=== PATIENT | female | born 1980 | race Caucasian/White ===

== ENCOUNTER 2016-07-26 21:45 | Emergency (ER) | payer OTHER ==
[2016-07-26 22:06] VITALS: BP 114/66; PULSE 79; TEMP 97.9; BMI 20.1
--- NOTE | 2016-07-26 22:18 | PDOC ---
[id number] 100 07/26/16 22:03 07/26/16 22:03 07/26/16 22:03 07/26/16 22:03 07/26/16 22:03 ED Treatment Course - LABORATORY CBC & Chemistry Diagram: 07/26/16 23:16 07/26/16 23:16 Medical Decision Making - Medical Decision Making 07/26/16 22:17 agree with care from ORGAN TUNER Stephon *DC/Admit/Observation/Transfer Diagnosis at time of Disposition: Non-viable , Back pain - Discharge Dispostion Disposition: HOME Condition at time of disposition: Stable - Referrals Referrals: Manjeet Domingo MD [Primary Care Provider] - - Patient Instructions Printed Discharge Instructions: Dealing With Miscarriage, DI for Miscarriage Additional Instructions: FOLLOW UP WITH YOUR EXECUTIVE ADMINISTRATIVE ASSISTANT SPECIALIST. CALL TO SCHEDULE YOUR APPOINTMENT. RETURN IF ANY CONCERNS FOR FURTHER EVALUATION. Print Language: SLOVAK
[2016-07-26 23:27] LABS: URINE APPEARANCE CLEAR; URINE BILIRUBIN NEGATIVE (NEGATIVE); URINE BLOOD NEGATIVE (NEGATIVE); URINE COLOR LT. YELLOW; URINE GLUCOSE (UA) NEGATIVE (NEGATIVE); URINE KETONE NEGATIVE (NEGATIVE); URINE LEUK ESTERASE NEGATIVE (NEGATIVE); URINE NITRITE NEGATIVE (NEGATIVE); URINE PROTEIN NEGATIVE (NEGATIVE); URINE UROBILINOGEN 0.2 E.U/dl E.U./dl (0.2-1.0)
[2016-07-26 23:29] LABS: MCH 28.4 pg (25.7-33.7); MCHC 31.5 g/dl (32.0-36.0); MEAN CELL VOLUME 90.1 fl (80-96); MEAN PLT VOLUME 7.7 fl (7.5-11.1); PLATELET COUNT 289 K/MM3 (134-434); RDW 14.6 % (11.6-15.6); WHITE BLOOD COUNT 6.1 K/mm3 (4.0-10.0)
--- NOTE | 2016-07-26 23:38 | PDOC ---
History of Present Illness - General Chief Complaint: Pain Stated Complaint: PAIN Time Seen by Provider: 07/26/16 22:10 History Source: Patient Exam Limitations: No Limitations - History of Present Illness Initial Comments: 07/26/16 22:33 36yo Female patient presents to ED c/o back pain, bilateral leg pain. Patient reports Jul 04 she was seen by her BELL SPINNER SOUSAPHONES for confirmation of . Patient reports blood work, urine and sonogram confirmed patient was 6 weeks and 3 days . Patient went to her follow up appointment Jul 26 and was told there is no heart beat via sonogram per patient. Patient is requesting a second opinion today and would like another sonogram done. She denies vaginal bleeding, rectal bleeding, fever, CP, Abd pain, n/v/d, diff breathing, or any other complaints at this time. Timing/Duration: 24 hours Severity: mild Modifying Factors: worse with: cold therapy, eating, immobilization, medication , movement, rest, other Associated Symptoms: denies: denies symptoms, chest pain, cough, diaphoresis, fever/chills, headaches, loss of appetite, malaise, nausea/vomiting, rash, seizure, shortness of breath, syncope, weakness, other Aspirin Received prior to arrival: No: no aspirin today, unknown, 81 mg x 1, 81 mg x 2, 81 mg x 3, 81 mg x 4, 325 mg x 1, provided at home, provided by EMS, provided by ED [facility] Contraindications(Core Measure): No: Allergy, Other, Active Blding w/i 24 hrs., Plavix, Receiving Warfarin Beta Tonny Contraindications(Core Measure): No: Not Prescribed, Allergy, Bradycardia (HR <60bpm), Advanced Heart Block, Pacemaker, Other Past History - Travel Traveled outside of the country in the last 30 days: No Close contact w/someone who was outside of country & ill: No - Past Medical History Allergies/Adverse Reactions: Allergies Allergy/AdvReac Type Severity Reaction Status Date / Time No Known Allergies Allergy Verified 07/26/16 22:03 Home Medications: Ambulatory Orders Levothyroxine [Synthroid -] 25 mcg PO DAILY 08/20/15 19 Chewable Tablet 0 tablet PO DAILY 07/26/16 Asthma: Yes Cardiac Disorders: Yes (heart murmur) Thyroid Disease: Yes (HYPO) - Surgical History Abdominal Surgery: Yes - Family Disease History Family Disease History: Diabetes: Grandparents - Reproductive History Spontaneous : 3 - Immunization History Immunization Up to Date: Yes - Psycho/Social/Smoking Cessation Hx Anxiety: No Suicidal Ideation: No Smoking Status: No Smoking History: Never smoked Have you smoked in the past 12 months: No Number of Cigarettes Smoked Daily: 0 Hx Alcohol Use: No Drug/Substance Use Hx: No Substance Use Type: None Review of Systems - Review of Systems Able to Perform ROS?: Yes Is the patient limited Citizen [place] proficient: No Respiratory: No: Cough, Shortness of Breath, Stridor, Wheezing Cardiac (ROS): No: Chest Pain, Edema, Lightheadedness, Palpitations, Chest Tightness ABD/GI: No: Constipated, Diarrhea, Nausea, Poor Appetite, Rectal Bleeding, Vomiting, Other (Abdominal Pain) : No: Burning, Dysuria, Frequency, Flank Pain, Hematuria, Pain, Urgency Musculoskeletal: Yes: Back Pain. No: Muscle Weakness Integumentary: No: Erythema, Pruritus, Rash Neurological: No: Headache, Numbness, Seizure, Tremors, Weakness, Ataxia Psychiatric: No: Anxiety All Other Systems: Reviewed and Negative *Physical Exam - Vital Signs Last Vital Signs Temp Pulse Resp BP Pulse Ox 97.9 F 79 20 114/66 100 07/26/16 22:03 07/26/16 22:03 07/26/16 22:03 07/26/16 22:03 07/26/16 22:03 - Physical Exam General Appearance: Yes: Nourished, Appropriately Dressed. No: Apparent Distress Neck: positive: Trachea midline, Supple. negative: Stridor, Lymphadenopathy (R) , Lymphadenopathy (L) Respiratory/Chest: positive: Lungs Clear, Normal Breath Sounds. negative: Respiratory Distress, Labored Respiration Cardiovascular: positive: Regular Rhythm, Regular Rate Gastrointestinal/Abdominal: positive: Normal Bowel Sounds, Soft. negative: Tender Musculoskeletal: positive: Normal Inspection. negative: CVA Tenderness Extremity: positive: Normal Capillary Refill, Normal Inspection, Normal Range of Motion, Pelvis Stable. negative: Tender Integumentary: positive: Normal Color, Dry, Warm. negative: Erythema, Swelling Neurologic: positive: chief financial officer II-XII NML intact, Fully Oriented, Alert, Normal Mood/ Affect, Normal Response, Motor Strength 5/5. negative: Abnormal Cranial NS ED Treatment Course - LABORATORY CBC & Chemistry Diagram: 07/26/16 23:16 07/26/16 23:16 - ADDITIONAL ORDERS Additional order review: Laboratory Results 07/26/16 23:17 Urine Color Lt. yellow Urine Appearance Clear Urine pH 7.0 Ur Specific [place] 1.015 Urine Protein Negative Urine Glucose (UA) Negative Urine Ketones Negative Urine Blood Negative Urine Nitrite Negative Urine Bilirubin Negative Urine Urobilinogen 0.2 e.u/dl Ur Leukocyte Esterase Negative - RADIOLOGY Radiology Studies Ordered: Category Date Time Status <14WKS US [US] Stat Ultrasound 07/26/16 23:05 Ordered *DC/Admit/Observation/Transfer Diagnosis at time of Disposition: Non-viable Back pain Qualifiers: Back pain location: low back pain Chronicity: unspecified Back pain laterality : bilateral Sciatica presence: without sciatica Qualified Code(s): M54.5 - Low back pain - Discharge Dispostion Disposition: HOME Condition at time of disposition: Stable Admit: No - Patient Instructions Printed Discharge Instructions: DI for Miscarriage, Dealing With Miscarriage Additional Instructions: FOLLOW UP WITH YOUR BELL SPINNER SOUSAPHONES SPECIALIST. CALL TO SCHEDULE YOUR APPOINTMENT. RETURN IF ANY CONCERNS FOR FURTHER EVALUATION. Print Language: DANISH
[2016-07-26 23:48] LABS: CALCIUM 8.9 mg/dL (8.5-10.1); CREATININE 0.8 mg/dL (0.55-1.02)
[2016-07-27] MEDS ORDERED: ACETAMINOPHEN 650 MG/20.3 ML ORAL SOLUTION (CUPS) PO ONE (00:29)
[2016-07-27] MEDS ORDERED: ACETAMINOPHEN 650 MG/20.3 ML ORAL SOLUTION (CUPS) ONE (00:40)
== END 2016-07-27 00:46 | disposition home or self-care (01) ==
LOC: JER 21:45
DX: O36.80X0 Pregnancy with inconclusive fetal viability, not applicable or unspecified (principal); Z3A.01 Less than 8 weeks gestation of pregnancy; M54.5 Low back pain
CPT/HCPCS: 36415; 76801-TC; 80048; 81003; 84703; 85027; 87086; 99282-25

== ENCOUNTER 2016-07-28 10:46 | Day surgery (SDC) | payer OTHER ==
[2016-07-27 16:23] VITALS: BMI 20.1
--- NOTE | 2016-07-28 11:53 | HP ---
History & Physical Update - History History: No Change - Physical Physical: No Change - Assessment Assessment: No Change - Plan Plan: No Change (missed , for suction D&C)
[2016-07-28] MEDS ORDERED: DEXAMETHASONE SOD PHOSPHATE 4 MG/1 ML VIAL ONE (11:55)
[2016-07-28] MEDS ORDERED: PROPOFOL 20 ML ONE (11:55)
[2016-07-28] MEDS ORDERED: ACETAMINOPHEN 325 MG TABLET (FP) PO PRN (11:55)
[2016-07-28] MEDS ORDERED: KETOROLAC TROMETHAMINE 30 MG/1 ML VIAL ONE (11:55)
[2016-07-28] MEDS ORDERED: IBUPROFEN 600 MG TABLET (FP) PO PRN (11:55)
[2016-07-28] MEDS ORDERED: MIDAZOLAM HCL 2 MG/2 ML SINGLE DOSE VIAL ONE (11:56)
[2016-07-28] MEDS ORDERED: LACTATED RINGERS SOLUTION 1,000 ML IV SCH (12:00)
--- NOTE | 2016-07-28 13:39 | OP ---
Operative Note - Note: Operative Date: 07/28/16 Pre-Operative Diagnosis: missed Operation: suction D&C Findings: anteverted uterus normal female anatomy Post-Operative Diagnosis: Same as Pre-op Surgeon: Sana Middleton Anesthesiologist/RAIL CAR WELDER: Sp Bianchi Jr. Anesthesia: General (with LMA) Estimated Blood Loss (mls): 20 Operative Report Dictated: Yes
[2016-07-28] MEDS ORDERED: oxyCODONE HCL 5 MG TABLET PO PRN ×2 (13:51)
[2016-07-28] MEDS ORDERED: ONDANSETRON 4 MG/2 ML VIAL IVPUSH PRN (13:51)
[2016-07-28] MEDS ORDERED: ACETAMINOPHEN 1000 MG/100 ML VIAL (NON FORMULARY) IVPB ONE (14:30)
[2016-07-28 15:32] VITALS: TEMP 98.3
[2016-07-28] MEDS ORDERED: oxyCODONE HCL 5 MG TABLET ONE (17:42)
[2016-07-28 18:51] VITALS: BP 96/47; PULSE 80
--- NOTE | 2016-07-29 08:44 | OP ---
DATE OF OPERATION: 07/28/2016 PREOPERATIVE DIAGNOSIS: Missed , at approximately 6 weeks' gestation. POSTOPERATIVE DIAGNOSIS: Missed , at approximately 6 weeks' gestation. PROCEDURE: Suction dilation and curettage. SURGEON: Sana Middleton DO INFANTRY OPERATIONS SPECIALIST: None. ANESTHESIA: General, by Sp Bianchi CRNA ESTIMATED BLOOD LOSS: Twenty milliliters. COMPLICATIONS: None. SPECIMENS: Included products of conception sent to Pathology for permanent evaluation. DISPOSITION: Stable to PACU. BRIEF HISTORY AND PROCEDURE: The patient is a 36-year-old female who has been diagnosed in our office with a missed and had elected to undergo a dilation and curettage procedure for removal of the tissue. The patient was admitted to [facility] on July 28, 2016, at which point consents for the procedure were signed. The patient was then taken back to the operating room and placed in the dorsal lithotomy position and given anesthesia per Sp Bianchi CRNA. The vaginal area was prepped in the usual fashion. The patient was draped and a hard timeout was performed. A speculum was placed inside the vagina and the anterior lip of the cervix was grasped with a tenaculum. Next, the cervix was serially dilated to accommodate a 7 curved suction curette which was advanced to the fundus. Several passes of the suction curette were completed. Then using sharp curettage, adequate uterine cry in all 4 quadrants of the uterus was achieved. Next, one final pass of the suction curette was achieved to remove the remainder of the tissue. The tissue was sent to Pathology for permanent evaluation. All instruments were removed from the vagina. Minimal bleeding was noted from the cervical os and no bleeding was noted from the tenaculum sites. All instruments were removed. Sponge and instrument counts were reported to be correct. The patient was awoken from anesthesia and recovering in stable condition in the PACU after the procedure. SANA MIDDLETON DO /[id number] MTDD
--- NOTE | 2016-07-29 14:35 | PATH ---
Surgical Pathology Report Patient Name: YISEL GOMEZ Med. Rec. #: [id number] /Age/Gender: 1980 (Age: 36) / F Account: [id number] Location: [facility] SURGICAL Taken: 07/28/2016 Received: 07/28/2016 Reported: 07/29/2016 Physicians: Sana Middleton M.D. Specimen(s) Received PRODUCTS OF CONCEPTION Clinical History Missed Final Diagnosis PRODUCTS OF CONCEPTION: NO SOMATIC TISSUE IDENTIFIED. CHORIONIC VILLUS TISSUE PRESENT, PARTIALLY HYDROPIC. Electronically Signed Erick Jackson M.D. Gross Description Received in formalin, labeled "products of conception" is a 6.0 x 4.5 x 1.0 cm aggregate of monreal-red soft tissue fragments. Villous tissue is identified. No somatic tissue is identified. A software support representative portion is submitted in one cassette. /07/28/201607/28/2016
== END 2016-07-28 19:00 | disposition home or self-care (01) ==
LOC: JASU-SURG 10:46
PROVIDERS: ATTEND Obstetrics & Gynecology
PROC: 10D17ZZ Extraction of Products of Conception, Retained, Via Natural or Artificial Opening (ICD-10-PCS; principal; 2016-07-28 12:15)
DX: O02.1 Missed abortion (principal); Z3A.01 Less than 8 weeks gestation of pregnancy
CPT/HCPCS: 86850; 86900; 86901; 88305-TC; 94760

== ENCOUNTER 2018-05-18 12:57 | Emergency (ER) | payer OTHER ==
[2018-05-18 13:55] VITALS: TEMP 98.5; BMI 25.0
--- NOTE | 2018-05-18 14:59 | PDOC ---
History of Present Illness - General Chief Complaint: Respiratory Stated Complaint: NAUSEA Time Seen by Provider: 05/18/18 14:26 History Source: Patient - History of Present Illness Timing/Duration: reports: other Associated Symptoms: reports: cough Past History - Past Medical History Allergies/Adverse Reactions: Allergies Allergy/AdvReac Type Severity Reaction Status Date / Time No Known Drug Allergies Allergy Verified 05/18/18 13:52 Home Medications: Ambulatory Orders Levothyroxine [Synthroid -] 25 mcg PO DAILY 08/20/15 Benzonatate 200 mg PO BID PRN 05/18/18 Methylprednisolone [Medrol Dose Shun] 40 mg PO ASDIR 05/18/18 Montelukast Na [Singulair -] 10 mg PO HS 05/18/18 Ranitidine Oral Solution [Zantac] 75 mg PO DAILY 05/18/18 Anemia: No Asthma: Yes Cancer: No Cardiac Disorders: Yes (heart murmur) CVA: No COPD: No CHF: No Dementia: No Diabetes: No GI Disorders: No Disorders: No HTN: No Hypercholesterolemia: No Liver Disease: No Seizures: No Thyroid Disease: Yes (HYPO) - Surgical History Abdominal Surgery: Yes - Family Disease History Family Disease History: Diabetes: Grandparents - Reproductive History Spontaneous : 3 - Immunization History Immunization Up to Date: Yes - Suicide/Smoking/Psychosocial Hx Smoking Status: No Smoking History: Never smoked Have you smoked in the past 12 months: No Number of Cigarettes Smoked Daily: 0 Information on smoking cessation initiated: No Hx Alcohol Use: No Drug/Substance Use Hx: No Substance Use Type: None Review of Systems - Review of Systems Constitutional: No: Chills, Fever, Night Sweats, Unexplained wgt Loss Respiratory: Yes: Cough, Shortness of Breath. No: Wheezing Cardiac (ROS): No: Chest Pain *Physical Exam - Vital Signs Last Vital Signs Temp Pulse Resp BP Pulse Ox 98.5 F 67 20 116/82 98 05/18/18 13:52 05/18/18 13:52 05/18/18 13:52 05/18/18 13:52 05/18/18 13:52 - Physical Exam General Appearance: Yes: Appropriately Dressed. No: Apparent Distress HEENT: positive: Normal Voice Neck: positive: Supple. negative: Lymphadenopathy (R), Lymphadenopathy (L) Respiratory/Chest: positive: Lungs Clear, Normal Breath Sounds. negative: Respiratory Distress Cardiovascular: positive: Regular Rate, S1, S2 Integumentary: positive: Dry, Warm Neurologic: positive: Fully Oriented, Alert, Normal Mood/Affect ED Treatment Course - RADIOLOGY Radiology Studies Ordered: Category Date Time Status CHEST PA & LAT [RAD] Stat Radiology 05/18/18 14:37 Taken Medical Decision Making - Medical Decision Making 05/18/18 14:57 38-year-old female, former smoker, asthma, GERD, here with cough. Patient reports that she's had a dry cough for approximately 8 months. Follows up with a ticket chopper assembler and had CT chest recently that showed nodules per patient. Currently on steroid taper and tessalon, but states she continues to cough and today may have had an episode of shortness of breath. No shortness of breath currently. Denies chest pain, tightness, wheezing, fever, chills or unexplained weight loss. Patient well-appearing, in ED with clear chest lungs. Chest x-ray done and shows no acute abnormality. Will discharge to continue meds and follow up with her ticket chopper assembler next week, as is already scheduled *DC/Admit/Observation/Transfer Diagnosis at time of Disposition: Chronic cough - Discharge Dispostion Disposition: HOME Condition at time of disposition: Good - Referrals Referrals: Manjeet Domingo MD [Primary Care Provider] - - Patient Instructions Printed Discharge Instructions: Cough Additional Instructions: Your chest x-ray was normal today. Continue medications and see your ticket chopper assembler next Monday as is already scheduled - Post Discharge Activity
[2018-05-18 15:22] VITALS: BP 122/85; PULSE 602
== END 2018-05-18 15:22 | disposition home or self-care (01) ==
LOC: JER 12:57
DX: R05 Cough (principal); J45.909 Unspecified asthma, uncomplicated; E03.9 Hypothyroidism, unspecified; K21.9 Gastro-esophageal reflux disease without esophagitis; Z87.891 Personal history of nicotine dependence
CPT/HCPCS: 71046-TC-FY; 99282-25

== ENCOUNTER 2018-06-22 08:33 | Emergency (ER) | payer OTHER ==
[2018-06-22 08:39] VITALS: BP 105/65; PULSE 103; TEMP 98; BMI 25.0
--- NOTE | 2018-06-22 09:33 | PDOC ---
History of Present Illness - General Chief Complaint: Vomiting/Diarrhea Stated Complaint: NAUSEA Time Seen by Provider: 06/22/18 09:16 History Source: Patient Exam Limitations: No Limitations Past History - Past Medical History Allergies/Adverse Reactions: Allergies Allergy/AdvReac Type Severity Reaction Status Date / Time No Known Drug Allergies Allergy Verified 06/22/18 08:35 Home Medications: Ambulatory Orders Levothyroxine [Synthroid -] 25 mcg PO DAILY 08/20/15 Benzonatate 200 mg PO BID PRN 05/18/18 Methylprednisolone [Medrol Dose Shun] 40 mg PO ASDIR 05/18/18 Montelukast Na [Singulair -] 10 mg PO HS 05/18/18 Ranitidine Oral Solution [Zantac] 75 mg PO DAILY 05/18/18 Anemia: No Asthma: Yes Cancer: No Cardiac Disorders: Yes (heart murmur) CVA: No COPD: No CHF: No Dementia: No Diabetes: No GI Disorders: No Disorders: No HTN: No Hypercholesterolemia: No Liver Disease: No Seizures: No Thyroid Disease: Yes (HYPO) - Surgical History Abdominal Surgery: Yes - Family Disease History Family Disease History: Diabetes: Grandparents - Reproductive History Spontaneous : 3 - Immunization History Immunization Up to Date: Yes - Suicide/Smoking/Psychosocial Hx Smoking Status: No Smoking History: Never smoked Have you smoked in the past 12 months: No Number of Cigarettes Smoked Daily: 0 Hx Alcohol Use: No Drug/Substance Use Hx: No Substance Use Type: None *Physical Exam - Vital Signs Last Vital Signs Temp Pulse Resp BP Pulse Ox 98.0 F 103 H 18 105/65 99 06/22/18 08:35 06/22/18 08:35 06/22/18 08:35 06/22/18 08:35 06/22/18 08:35 Moderate Sedation - Procedure Monitoring Vital Signs: Procedure Monitoring Vital Signs Temperature 98.0 F 06/22/18 08:35 Pulse Rate 103 H 06/22/18 08:35 Respiratory Rate 18 06/22/18 08:35 Blood Pressure 105/65 06/22/18 08:35 O2 Sat by Pulse Oximetry (%) 99 06/22/18 08:35 ED Treatment Course - LABORATORY CBC & Chemistry Diagram: 06/22/18 09:58 06/22/18 09:58 Medical Decision Making - Medical Decision Making 06/22/18 14:05 tolerated PO prior to discharge *DC/Admit/Observation/Transfer Diagnosis at time of Disposition: Nausea and vomiting Qualifiers: Vomiting type: unspecified Vomiting Intractability: unspecified Qualified Code( s): R11.2 - Nausea with vomiting, unspecified - Discharge Dispostion Disposition: HOME Decision to Admit order: No - Referrals Referrals: Manjeet Domingo MD [Primary Care Provider] - - Patient Instructions Printed Discharge Instructions: DI for Vomiting -- Adult Additional Instructions: you were seen in the emergency department for the evaluation of your vomiting and diarrhea. your labs were within normal limits and your urine did not show signs of an infection. please follow up with your primary medical doctor Dr. Domingo within 72 hours after discharge for follow up care and management. stay hydrated and use tylenol and motrin as directed on the label for pain control. please return to the emergency department if you have worsening symptoms or new concerning symptoms such as fever/chills, uncontrollable vomiting, and blood in the urine and stool. Thank you. - Post Discharge Activity Forms/Work/School Notes: Back to Work
[2018-06-22] MEDS ORDERED: ONDANSETRON 4 MG/2 ML VIAL IVPUSH ONE (09:40)
--- NOTE | 2018-06-22 09:40 | PDOC ---
Attending Attestation - Resident Resident Name: GenetErick - ED Attending Attestation I have performed the following: I have examined & evaluated the patient, The case was reviewed & discussed with the resident, I agree w/resident's findings & plan, Exceptions are as noted - HPI HPI: 06/22/18 09:38 38 yo F with h/o hypothyroid, asthma and GERD here with n/v/d since last pm. pt states she last threw up this am. no f/c. c/o generalized abd pain and cramping. started having loose watery stool this am. describes subjective fevers and chills no sick contacts. no recent abx. no travel. 06/22/18 09:41 - Physicial Exam PE: 06/22/18 09:39 awake alert lungs clear bilaterally heart rrr no mrg abd soft nontender. ext wwp no edema. no calf tenderness. skin warma nd dry. alert oriented x 3. - Medical Decision Making 06/22/18 09:39 differential gastroenteritis, dehydration, electrolyte abnormality, colitis. abd exam relatively nontender. will treat with iv hydration cbc lytes lipase antieetics. antacid. reassess. hcg
[2018-06-22] MEDS ORDERED: MAG HYDROX/AL HYDROX/SIMETH 30 ML UNIT-DOSE CUP PO ONE (09:41)
[2018-06-22] MEDS ORDERED: FAMOTIDINE 20 MG/50 ML IVPB 20 MG/50 ML MG IVPB ONE ×2 (09:41→10:02)
[2018-06-22] MEDS ORDERED: ACETAMINOPHEN 1000 MG/100 ML VIAL (NON FORMULARY) IVPB ONE (09:53)
[2018-06-22] MEDS ORDERED: MAG HYDROX/AL HYDROX/SIMETH 30 ML UNIT-DOSE CUP ONE (10:02)
[2018-06-22] MEDS ORDERED: ONDANSETRON 4 MG/2 ML VIAL ONE (10:02)
[2018-06-22] MEDS ORDERED: ACETAMINOPHEN INJECTION 100 ML IVPB ONE (10:14)
[2018-06-22 10:47] LABS: BASO % 0.5 % (0-2.0); EOS % 0.1 % (0-4.5); HEMATOCRIT 38.6 % (32.4-45.2); HEMOGLOBIN 13.3 GM/dL (10.7-15.3); LYMPH % 3.7 % (8-40); MCH 30.9 pg (25.7-33.7); MCHC 34.4 g/dl (32.0-36.0); MEAN PLT VOLUME 8.6 fl (7.5-11.1); MONO % 4.3 % (3.8-10.2); NEUT % 91.4 % (42.8-82.8); PLATELET COUNT 268 K/MM3 (134-434); RBC 4.28 M/mm3 (3.60-5.2); RDW 13.7 % (11.6-15.6)
[2018-06-22 10:52] LABS: URINE APPEARANCE CLOUDY; URINE BILIRUBIN NEGATIVE (<2.0 mg/dL); URINE COLOR DKYELLOW; URINE GLUCOSE (UA) NEGATIVE (NEGATIVE); URINE KETONE NEGATIVE (NEGATIVE); URINE LEUK ESTERASE NEGATIVE (NEGATIVE); URINE NITRITE NEGATIVE (NEGATIVE); URINE PROTEIN 1+ (NEGATIVE); URINE UROBILINOGEN NEGATIVE mg/dL (0.2-1.0)
[2018-06-22 10:53] LABS: HCG,QUALITATIVE URINE Negative
[2018-06-22 11:17] LABS: ALBUMIN 3.8 g/dl (3.4-5.0); ALK PHOS 107 U/L (45-117); ANION GAP 10 MMOL/L (8-16); BILIRUBIN,TOTAL 1.2 mg/dL (0.2-1); BLOOD UREA NITROGEN 16 mg/dL (7-18); CALCIUM 8.9 mg/dL (8.5-10.1); CHLORIDE 109 mmol/L (98-107); CO2 23 mmol/L (21-32); CREATININE 1.1 mg/dL (0.55-1.3); GLUCOSE,RANDOM 92 mg/dL (74-106); LIPASE 139 U/L (73-393); POTASSIUM 3.7 mmol/L (3.5-5.1); SGOT/AST 14 U/L (15-37); SGPT/ALT 19 U/L (13-61); SODIUM 143 mmol/L (136-145); TOT PROT 7.4 g/dl (6.4-8.2)
[2018-06-22] MEDS ORDERED: ALBUTEROL SO4 2.5/IPRATROPIUM 0.5 INH SOL 3 ML VIAL.NEB. NEB ONE (12:38)
[2018-06-22 13:03] LABS: ANISOCYTOSIS 0; MACROCYTOSIS 0; PLATELET ESTIMATE NORMAL
[2018-06-22 13:18] LABS: EPI CELLS RARE /HPF (FEW); URINE BACTERIA RARE /hpf (NONE SEEN); URINE MUCUS MANY
== END 2018-06-22 13:45 | disposition home or self-care (01) ==
LOC: JER 08:33
PROC: 3E033GC Introduction of Other Therapeutic Substance into Peripheral Vein, Percutaneous Approach (ICD-10-PCS; principal; 2018-06-22)
PROC: 3E033GC Introduction of Other Therapeutic Substance into Peripheral Vein, Percutaneous Approach (ICD-10-PCS; 2018-06-22)
PROC: 3E033NZ Introduction of Analgesics, Hypnotics, Sedatives into Peripheral Vein, Percutaneous Approach (ICD-10-PCS; 2018-06-22)
DX: R11.2 Nausea with vomiting, unspecified (principal); E03.9 Hypothyroidism, unspecified; R00.1 Bradycardia, unspecified
CPT/HCPCS: 36415; 71046-TC-FY; 80053; 81003; 81015; 83690; 84703; 85025; 96365; 96375; 99281-25; J0131

== ENCOUNTER 2018-08-26 09:44 | Emergency (ER) | payer SELFPAY ==
[2018-08-26 09:55] VITALS: BP 97/46; PULSE 101; TEMP 98; BMI 24.7
[2018-08-26] MEDS ORDERED: predniSONE 20 MG TABLET (UD) PO ONE (10:29)
[2018-08-26] MEDS ORDERED: predniSONE 20 MG TABLET (UD) ONE (10:32)
--- NOTE | 2018-08-26 10:33 | PDOC ---
History of Present Illness - General Chief Complaint: Cold Symptoms Stated Complaint: COLD SYMPTOMS Time Seen by Provider: 08/26/18 09:58 History Source: Patient Exam Limitations: No Limitations - History of Present Illness Initial Comments: 08/26/18 10:27 Complaints of cough, fevers and chills, earache and throat pain, and some wheezing. Has history of asthma with frequent cough. Has been using her albuterol inhaler with minimal resolved. States symptoms started evening however worsened Monday08/26/18 10:28 Timing/Duration: reports: getting worse Severity: reports: mild, moderate Modifying Factors: improves with: albuterol inhaler Associated Symptoms: reports: cough, earache, facial pain, fever/chills, headache, nasal congestion, sore throat Past History - Travel Traveled outside of the country in the last 30 days: No Close contact w/someone who was outside of country & ill: No - Past Medical History Allergies/Adverse Reactions: Allergies Allergy/AdvReac Type Severity Reaction Status Date / Time No Known Drug Allergies Allergy Verified 08/26/18 09:46 Home Medications: Ambulatory Orders Levothyroxine [Synthroid -] 25 mcg PO DAILY 08/20/15 Ranitidine Oral Solution [Zantac] 75 mg PO BID 05/18/18 Oseltamivir Phosphate [Tamiflu -] 75 mg PO BID #10 capsule 08/26/18 predniSONE [Deltasone -] 20 mg PO BID #8 tablet 08/26/18 Anemia: No Asthma: Yes Cancer: No Cardiac Disorders: Yes (heart murmur) CVA: No COPD: No CHF: No Dementia: No Diabetes: No GI Disorders: No Disorders: No HTN: No Hypercholesterolemia: No Liver Disease: No Seizures: No Thyroid Disease: Yes (HYPO) - Surgical History Abdominal Surgery: Yes - Family Disease History Family Disease History: Diabetes: Grandparents - Reproductive History Spontaneous : 3 - Immunization History Immunization Up to Date: Yes - Suicide/Smoking/Psychosocial Hx Smoking Status: No Smoking History: Unknown if ever smoked Have you smoked in the past 12 months: No Number of Cigarettes Smoked Daily: 0 Hx Alcohol Use: No Drug/Substance Use Hx: No Substance Use Type: None Review of Systems - Review of Systems Able to Perform ROS?: Yes Is the patient limited [place] proficient: Yes Constitutional: Yes: Symptoms Reported, See HPI, Fever, Malaise HEENTM: Yes: Symptoms Reported, Nose Congestion, Throat Pain Respiratory: Yes: Symptoms reported, See HPI, Cough, Wheezing Musculoskeletal: Yes: Symptoms Reported, See HPI, Muscle Pain, Muscle Weakness Integumentary: No: Symptoms Reported Neurological: Yes: Symptoms reported, See HPI, Headache All Other Systems: Reviewed and Negative *Physical Exam - Vital Signs Last Vital Signs Temp Pulse Resp BP Pulse Ox 98 F 101 H 20 97/46 L 98 08/26/18 09:49 08/26/18 09:49 08/26/18 09:49 08/26/18 09:49 08/26/18 09:49 - Physical Exam Comments: 08/26/18 10:29 GENERAL: [The child is awake, alert, and appropriately interactive.] EYES: [The pupils are equal, round, and reactive to light, with clear, conjunctiva.but glassy] NOSE: [The nose with clear drainage EARS: [The ear canals and tympanic membranes are congested but landmarks easily visualed ] THROAT: [The oropharynx is clear with erythema, no exudates. The mucous membranes are moist.] NECK: [The neck is supple with mildly tender adenopathy, no menigemous] CHEST: [The lungs are coarse but clear without crackles, some wheezing inspiratory and expiratory with moist cough produced with deep inspiration.] HEART: [Heart is regular rhythm, with normal S1 and S2, no murmurs.] ABDOMEN: [The abdomen is soft and nontender with normal bowel sounds. There is no organomegaly and no mass. There is no guarding or rebound.] EXTREMITIES: [Extremities are normal.] NEURO: [Behavior is normal for age.cranky but easily,m Tone is normal.] SKIN: [Skin is unremarkable without rash or swelling. There is no bruising, and there are no other signs of injury.] General Appearance: Yes: Appropriately Dressed Moderate Sedation - Procedure Monitoring Vital Signs: Procedure Monitoring Vital Signs Temperature 98 F 08/26/18 09:49 Pulse Rate 101 H 08/26/18 09:49 Respiratory Rate 20 08/26/18 09:49 Blood Pressure 97/46 L 08/26/18 09:49 O2 Sat by Pulse Oximetry (%) 98 08/26/18 09:49 Progress Note - Progress Note Progress Note: Upper respiratory infection, probable influenza. We'll treat with Tamiflu and add prednisone for asthmatic type symptoms. *DC/Admit/Observation/Transfer Diagnosis at time of Disposition: Influenzal acute upper respiratory infection - Discharge Dispostion Disposition: HOME Condition at time of disposition: Stable Decision to Admit order: No - Referrals Referrals: Manjeet Domingo MD [Primary Care Provider] - - Patient Instructions Printed Discharge Instructions: DI for Viral Upper Respiratory Infection -- Adult Additional Instructions: Rest, drink lots of fluids: Teas, water, soups, Pedialyte Saltwater gargles Steamy showers/seem to face break up mucus Old-fashioned treatments help! Avoid contact with others until fevers and cough resolved as this is very contagious Lots of handwashing and good hygiene Continue [id number] medications for symptomatic relief Tylenol or Motrin for fever and pain Take all of Tamiflu as directed: 1 tab every 12 hours for 5 days Continue albuterol nebulizers every 4-6 hours for the next 2-3 days Continue prednisone 40 mg daily for 4 days Followup with private physician in one to 2 days as needed or if worsening Return to emergency department for worsened symptoms, fevers, dehydration Influenza takes between 5 and 7 days for resolution To not participate in any activity, work, or school until fevers and cough are gone for at least one day - Post Discharge Activity Forms/Work/School Notes: Back to Work
== END 2018-08-26 10:41 | disposition home or self-care (01) ==
LOC: JER 09:44 → JERFT 09:44
DX: J11.1 Influenza due to unidentified influenza virus with other respiratory manifestations (principal); J45.909 Unspecified asthma, uncomplicated; E03.9 Hypothyroidism, unspecified
CPT/HCPCS: 99281-25

== ENCOUNTER 2019-04-26 19:16 | Emergency (ER) | payer OTHER ==
[2019-04-26 19:25] VITALS: BP 126/89; PULSE 90; TEMP 98.5; BMI 25.4
[2019-04-26] MEDS ORDERED: ALBUTEROL SO4 2.5/IPRATROPIUM 0.5 INH SOL 3 ML VIAL.NEB. NEB ONE ×5 (19:27→20:11)
--- NOTE | 2019-04-26 19:27 | PDOC ---
Rapid Medical Evaluation Chief Complaint: Asthma Time Seen by Provider: 04/26/19 19:22 Medical Evaluation: Allergies Allergy/AdvReac Type Severity Reaction Status Date / Time No Known Drug Allergies Allergy Verified 04/26/19 19:19 04/26/19 19:22 Pt c/o: cough wheezing x 1 week, hx asthma but does not have an inhaler, no chest pain Pt on brief exam: noted dry and hacking cough. no wheezing Pt ordered for: nebulizer Pt to proceed to the ED Discharge Disposition - Diagnosis Cough - Referrals - Patient Instructions - Post Discharge Activity
--- NOTE | 2019-04-26 20:01 | PDOC ---
History of Present Illness - General Chief Complaint: Asthma Stated Complaint: ASTHMA Time Seen by Provider: 04/26/19 19:22 History Source: Patient Exam Limitations: Clinical Condition - History of Present Illness Initial Comments: 04/26/19 19:57 Patient with history of asthma presented with complaint of wheezing and chest tightness while out in a store shopping 1 hour ago. Patient also reported dry cough. Denies fever, chills, sore throat, nausea or vomiting. Patient has not used any treatment for symptoms. Denies any other symptoms Is this a multiple visit Asthma Patient?: No Past History - Past Medical History Allergies/Adverse Reactions: Allergies Allergy/AdvReac Type Severity Reaction Status Date / Time No Known Drug Allergies Allergy Verified 04/26/19 19:19 Home Medications: Ambulatory Orders Levothyroxine [Synthroid -] 25 mcg PO DAILY 08/20/15 Ranitidine Oral Solution [Zantac] 75 mg PO BID 05/18/18 Oseltamivir Phosphate [Tamiflu -] 75 mg PO BID #10 capsule 08/26/18 Benzonatate [Tessalon Pearls -] 100 mg PO Q8H #20 capsule 04/26/19 Montelukast Na [Singulair -] 10 mg PO HS #7 tablet 04/26/19 predniSONE [Deltasone -] 20 mg PO BID 5 Days #10 tablet 04/26/19 Anemia: No Asthma: Yes Cancer: No Cardiac Disorders: Yes (heart murmur) CVA: No COPD: No CHF: No Dementia: No Diabetes: Yes (BOARDERLINE) GI Disorders: No Disorders: No HTN: No Hypercholesterolemia: No Liver Disease: No Seizures: No Thyroid Disease: Yes (HYPO) - Surgical History Abdominal Surgery: Yes - Reproductive History Spontaneous : 3 - Immunization History Immunization Up to Date: Yes - Psycho Social/Smoking Cessation Hx Smoking Status: No Smoking History: Never smoked Have you smoked in the past 12 months: No Number of Cigarettes Smoked Daily: 0 Information on smoking cessation initiated: No Hx Alcohol Use: No Drug/Substance Use Hx: No Substance Use Type: None Review of Systems - Review of Systems Able to Perform ROS?: Yes Is the patient limited Albanian proficient: No Constitutional: No: Chills, Fever, Malaise HEENTM: No: Symptoms Reported, See HPI, Eye Pain, Blurred Vision, Tearing, Recent change in vision, Double Vision, Cataracts, Ear Pain, Ocular Prothesis, Ear Discharge, Nose Pain, Nose Congestion, Tinnitus, Nose Bleeding, Hearing Loss , Throat Pain, Throat Swelling, Mouth Pain, Dental Problems, Difficulty Swallowing, Mouth Swelling, Other Respiratory: Yes: Symptoms reported, See HPI, Cough, Wheezing. No: Orthopnea, Shortness of Breath, SOB with Exertion, SOB at Rest, Stridor, Productive cough, Hemoptysis, Other Cardiac (ROS): Yes: Chest Tightness. No: Symptoms Reported, See HPI, Chest Pain , Edema, Irregular Heart Rate, Lightheadedness, Palpitations, Syncope, Other ABD/GI: No: Symptoms Reported, Nausea, Vomiting Musculoskeletal: No: Symptoms Reported Integumentary: No: Symptoms Reported Neurological: No: Symptoms reported All Other Systems: Reviewed and Negative *Physical Exam - Vital Signs Last Vital Signs Temp Pulse Resp BP Pulse Ox 98.5 F 90 16 126/89 98 04/26/19 19:19 04/26/19 19:19 04/26/19 19:19 04/26/19 19:19 04/26/19 19:19 - Physical Exam Comments: 04/26/19 20:00 GENERAL: Well developed, well nourished. Awake and alert. No acute distress. HEENT: Normocephalic, atraumatic. PERRLA, EOMI. No conjunctival pallor. Sclera are non-icteric. Moist mucous membranes. Oropharynx is clear. NECK: Supple. Full ROM. CARDIOVASCULAR: Regular rate and rhythm. No murmurs, rubs, or gallops. Distal pulses are 2+ and symmetric. PULMONARY: No evidence of respiratory distress. Diffuse expiratory wheeze on lung bases bilateral. No rales or rhonchi. ABDOMINAL: Soft. Non-tender. Non-distended. No rebound or guarding. No organomegaly. Normoactive bowel sounds. MUSCULOSKELETAL Normal range of motion at all joints. SKIN: Warm and dry. Normal capillary refill. No rashes. No cyanosis. NEUROLOGICAL: Alert, awake, appropriate. Gait is normal without ataxia. PSYCHIATRIC: Cooperative. Good eye contact. Appropriate mood General Appearance: Yes: Nourished, Appropriately Dressed. No: Apparent Distress Medical Decision Making - Medical Decision Making 04/26/19 19:58 Patient with history of asthma presented with complaint of wheezing and chest tightness while out in a store shopping 1 hour ago. Patient also reported dry cough. Denies fever, chills, sore throat, nausea or vomiting. Patient has not used any treatment for symptoms. Denies any other symptoms Exam significant for diffuse expiratory wheezing lung bases bilateral with cough throughout exam. Patient no acute respiratory distress. DuoNeb with Atrovent and ipratropium bromide ordered for wheezing and bronchospasm. Decadron 10 mg p.o. ordered. Reassess after nebulizer treatment 04/26/19 20:54 Patient with improvement wheezing post nebulizer treatment stable for outpatient management on p.o. prednisone for 5 days with pulmonology follow-up and Tessalon Perles as needed for cough. Patient stable for discharge Discharge - Discharge Information Problems reviewed: Yes Clinical Impression/Diagnosis: Cough Asthma Qualifiers: Asthma severity: mild Asthma persistence: intermittent Asthma complication type : with acute exacerbation Qualified Code(s): J45.21 - Mild intermittent asthma with (acute) exacerbation Condition: Stable Disposition: HOME - Admission No - Additional Discharge Information Prescriptions: Benzonatate [Tessalon Pearls -] 100 mg PO Q8H #20 capsule Montelukast Na [Singulair -] 10 mg PO HS #7 tablet predniSONE [Deltasone -] 20 mg PO BID 5 Days #10 tablet - Follow up/Referral Referrals: Denys Schultz MD [Staff Physician] - - Patient Discharge Instructions Patient Printed Discharge Instructions: Asthma -- Adult Additional Instructions: Take medications as prescribed. Increase fluid intake. Follow-up with referred to pulmonology for asthma control. - Post Discharge Activity
[2019-04-26] MEDS ORDERED: DEXAMETHASONE LIQUID 0.5 MG/5 ML PO ONE (20:05)
[2019-04-26] MEDS ORDERED: DEXAMETHASONE SOD PHOSPHATE 10 MG/1 ML VIAL ONE (20:11)
== END 2019-04-26 21:10 | disposition home or self-care (01) ==
LOC: JERFT 19:16
PROC: 3E0F7GC Introduction of Other Therapeutic Substance into Respiratory Tract, Via Natural or Artificial Opening (ICD-10-PCS; principal; 2019-04-26)
PROC: 3E0F7GC Introduction of Other Therapeutic Substance into Respiratory Tract, Via Natural or Artificial Opening (ICD-10-PCS; 2019-04-26)
DX: J45.21 Mild intermittent asthma with (acute) exacerbation (principal); E11.9 Type 2 diabetes mellitus without complications; E03.9 Hypothyroidism, unspecified; R01.1 Cardiac murmur, unspecified
CPT/HCPCS: 94640; 99281-25

== ENCOUNTER 2019-06-13 10:59 | Emergency (ER) | payer OTHER ==
[2019-06-13 11:10] VITALS: BP 137/61; PULSE 82; TEMP 97.8; BMI 25.0
[2019-06-13] MEDS ORDERED: KETOROLAC TROMETHAMINE 30 MG/1 ML VIAL IM ONE (11:34)
[2019-06-13] MEDS ORDERED: KETOROLAC TROMETHAMINE 30 MG/1 ML VIAL ONE (12:09)
[2019-06-13 13:03] LABS: URINE APPEARANCE CLEAR; URINE BILIRUBIN NEGATIVE (NEGATIVE); URINE COLOR YELLOW; URINE GLUCOSE (UA) NEGATIVE (NEGATIVE); URINE KETONE NEGATIVE (NEGATIVE); URINE LEUK ESTERASE NEGATIVE (NEGATIVE); URINE NITRITE NEGATIVE (NEGATIVE); URINE PROTEIN NEGATIVE (NEGATIVE)
--- NOTE | 2019-06-13 13:18 | PDOC ---
History of Present Illness - General Chief Complaint: Back Pain Stated Complaint: UPPER BACK PAIN Time Seen by Provider: 06/13/19 11:12 History Source: Patient Exam Limitations: No Limitations - History of Present Illness Initial Comments: 06/13/19 13:08 39-year-old female with history of asthma never been intubated, allergies, borderline diabetes, chronic UTIs, anxiety presents with several complaints. Reports dry cough for 1 year worsening over the last week. Complains of urinary urgency for approximately 2 weeks , last treated with antibiotics 2 months ago, follows up with a ap operator who advised her to follow-up with a urologist. Also complains of right-sided shoulder pain after lifting a heavy box at home yesterday. Denies taking any medications for her pain today. Denies recent travel, palpitations, shortness of breath, chest pain, fever, chills, body aches , back pain, nausea, vomiting, diarrhea, hematuria, polyuria. She has followed up with a inspector plug seam who ran PFT studies and reported findings consistent with asthma. She has a follow-up appointment with the inspector plug seam next week. Admits to occasional tobacco smoke. Meds: Depo-Provera Symbicort Singulair Flonase Albuterol MDI Ranitidine Levothyroxine ROS: GENERAL/CONSTITUTIONAL: No fever, chills, weakness, dizziness HEAD, EYES, EARS, NOSE AND THROAT: No changes in vision, No ear pain or discharge, No sore throat CARDIOVASCULAR: No chest pain RESPIRATORY: Positive dry cough, no shortness of breath GASTROINTESTINAL: No pain, nausea, vomiting, diarrhea or constipation GENITOURINARY: Urinary urgency, denies dysuria, urinary frequency, vaginal bleeding or vaginal discharge MUSCULOSKELETAL: Right shoulder pain, no neck or back pain SKIN: No rash NEUROLOGIC: No headache, vertigo, loss of consciousness, or loss of sensation PE: GENERAL: well-appearing, NAD, speaking full sentences HEAD: NCAT EYES: Pupils equal, round and reactive to light, sclera anicteric, conjunctiva clear ENT: pharynx: no erythema, no exudate, uvula midline NECK: supple CHEST: nontender RESP: Minimal wheezing throughout lung field CARDIO: rrr, no m/g/r ABD: +BS, soft, nontender, non distended BACK: no midline spinal ttp, no CVAT EXTREMITIES: Normal range of motion x4, no swelling or bony tenderness noted to right shoulder, no edema NEUROLOGICAL: Normal speech, normal gait SKIN: Warm, Dry Past History - Past Medical History Allergies/Adverse Reactions: Allergies Allergy/AdvReac Type Severity Reaction Status Date / Time No Known Drug Allergies Allergy Verified 06/13/19 11:06 Home Medications: Ambulatory Orders Levothyroxine [Synthroid -] 25 mcg PO DAILY 08/20/15 Ranitidine Oral Solution [Zantac] 75 mg PO BID 05/18/18 Benzonatate [Tessalon Pearls -] 100 mg PO Q8H #20 capsule 04/26/19 Montelukast Na [Singulair -] 10 mg PO HS #7 tablet 04/26/19 predniSONE [Deltasone -] 20 mg PO BID 5 Days #10 tablet 04/26/19 Anemia: No Asthma: Yes Cancer: No Cardiac Disorders: Yes (heart murmur) CVA: No COPD: No CHF: No Dementia: No Diabetes: Yes (BOARDERLINE) GI Disorders: No Disorders: No HTN: No Hypercholesterolemia: No Liver Disease: No Seizures: No Thyroid Disease: Yes (HYPO) - Surgical History Abdominal Surgery: Yes - Reproductive History Spontaneous : 3 - Immunization History Immunization Up to Date: Yes - Psycho Social/Smoking Cessation Hx Smoking Status: No Smoking History: Never smoked Have you smoked in the past 12 months: No Number of Cigarettes Smoked Daily: 0 Information on smoking cessation initiated: No Hx Alcohol Use: No Drug/Substance Use Hx: No Substance Use Type: None *Physical Exam - Vital Signs Last Vital Signs Temp Pulse Resp BP Pulse Ox 97.8 F 82 18 137/61 100 06/13/19 11:04 06/13/19 11:04 06/13/19 11:04 06/13/19 11:04 06/13/19 11:04 ED Treatment Course - ADDITIONAL ORDERS Additional order review: Laboratory Results 06/13/19 12:00 Urine Color Yellow Urine Appearance Clear Urine pH 8.0 D Ur Specific [place] 1.017 Urine Protein Negative Urine Glucose (UA) Negative Urine Ketones Negative Urine Blood Negative Urine Nitrite Negative Urine Bilirubin Negative Urine Urobilinogen 1.0 Ur Leukocyte Esterase Negative - RADIOLOGY Radiology Studies Ordered: Category Date Time Status CHEST PA & LAT [RAD] Stat Radiology 06/13/19 11:34 Ordered - Medications Given in the ED: ED Medications Discontinued Medications Generic Name Dose Route Start Last Admin Trade Name Serena PRN Reason Stop Dose Admin Ketorolac Tromethamine 30 mg 06/13/19 11:34 06/13/19 12:12 Toradol Injection - IM 06/13/19 11:35 30 mg ONCE ONE Administration Medical Decision Making - Medical Decision Making 06/13/19 13:18 39-year-old female with multiple complaints including dry cough for 1 year, urinary urgency x2 weeks and right shoulder pain after heavy lifting yesterday. She has a primary care physician, a ap operator in the [employer]. Order UA, urine culture Urine Chest x-ray IM Toradol Reassess 06/13/19 14:08 Urine negative UA results normal, discussed with patient Chest x-ray negative for acute findings Right shoulder pain improved after IM Toradol Advised to keep the scheduled appointment with pulmonology next week Stable for discharge Return precautions discussed Discharge - Discharge Information Problems reviewed: Yes Clinical Impression/Diagnosis: Cough, Urinary urgency Right shoulder pain Qualifiers: Chronicity: acute Qualified Code(s): M25.511 - Pain in right shoulder Condition: Stable - Admission No - Follow up/Referral Referrals: Senait Gould MD [Primary Care Provider] - - Patient Discharge Instructions Additional Instructions: Take ibuprofen 600 mg every 6 hours as needed for pain Keep your pulmonology appointment scheduled for next week Call to make an appointment with a urologist regarding your chronic UTI's although today your urine analysis was normal. Return to ED if any worsening symptom - Post Discharge Activity
[2019-06-13] MEDS ORDERED: ALBUTEROL SO4 2.5/IPRATROPIUM 0.5 INH SOL 3 ML VIAL.NEB. NEB ONE ×2 (13:33→13:36)
== END 2019-06-13 14:16 | disposition home or self-care (01) ==
LOC: JERFT 10:59 → JER 10:59 → JERFT 14:16
PROC: 3E0F7GC Introduction of Other Therapeutic Substance into Respiratory Tract, Via Natural or Artificial Opening (ICD-10-PCS; principal; 2019-06-13)
PROC: 3E0233Z Introduction of Anti-inflammatory into Muscle, Percutaneous Approach (ICD-10-PCS; 2019-06-13)
DX: R05 Cough (principal); R39.15 Urgency of urination
CPT/HCPCS: 71046-TC-FY; 81003; 84703; 87086; 99282-25

== ENCOUNTER 2019-07-17 21:49 | Emergency (ER) | payer OTHER ==
[2019-07-17 22:00] VITALS: BP 110/68; PULSE 119; TEMP 97.5; BMI 24.7
[2019-07-17] MEDS ORDERED: DEXAMETHASONE LIQUID 0.5 MG/5 ML PO ONE (22:11)
[2019-07-17] MEDS ORDERED: ALBUTEROL SO4 2.5/IPRATROPIUM 0.5 INH SOL 3 ML VIAL.NEB. NEB SCH (22:15)
[2019-07-17] MEDS ORDERED: ALBUTEROL SO4 2.5/IPRATROPIUM 0.5 INH SOL 3 ML VIAL.NEB. NEB ONE (22:15)
[2019-07-17] MEDS ORDERED: DEXAMETHASONE SOD PHOSPHATE 10 MG/1 ML VIAL ONE (22:15)
--- NOTE | 2019-07-17 22:33 | PDOC ---
History of Present Illness - General Chief Complaint: Asthma Stated Complaint: ASTHMA Time Seen by Provider: 07/17/19 22:11 - History of Present Illness Initial Comments: 07/17/19 22:31 39-year-old female with a past medical history of asthma presents for evaluation of exacerbation of asthma x5 days no systemic symptoms Past History - Past Medical History Allergies/Adverse Reactions: Allergies Allergy/AdvReac Type Severity Reaction Status Date / Time No Known Drug Allergies Allergy Verified 07/17/19 22:00 Home Medications: Ambulatory Orders Levothyroxine [Synthroid -] 25 mcg PO DAILY 08/20/15 Ranitidine Oral Solution [Zantac] 75 mg PO BID 05/18/18 Benzonatate [Tessalon Pearls -] 100 mg PO Q8H #20 capsule 04/26/19 Montelukast Na [Singulair -] 10 mg PO HS #7 tablet 04/26/19 predniSONE [Deltasone -] 20 mg PO BID 5 Days #10 tablet 04/26/19 Albuterol 0.083% Nebulizer Veronica [Ventolin 0.083% Nebulizer Soln -] 1 amp NEB Q6H 14 Days #30 amp 06/13/19 Albuterol 0.083% Nebulizer Veronica [Ventolin 0.083% Nebulizer Soln -] 1 neb NEB Q4H PRN #20 vial 07/17/19 Nebulizer and Compressor [[place] Choice Nebulizer] 1 each ASDIR #1 each 07/17 Anemia: No Asthma: Yes Cancer: No Cardiac Disorders: Yes (heart murmur) CVA: No COPD: No CHF: No Dementia: No Diabetes: Yes (BOARDERLINE) GI Disorders: No Disorders: No HTN: No Hypercholesterolemia: No Liver Disease: No Seizures: No Thyroid Disease: Yes (HYPO) - Surgical History Abdominal Surgery: Yes - Reproductive History Spontaneous : 3 - Immunization History Immunization Up to Date: Yes - Psycho Social/Smoking Cessation Hx Smoking Status: No Smoking History: Never smoked Have you smoked in the past 12 months: No Number of Cigarettes Smoked Daily: 0 Information on smoking cessation initiated: No Hx Alcohol Use: Yes Drug/Substance Use Hx: No Substance Use Type: None Review of Systems - Review of Systems Constitutional: No: Fever Respiratory: Yes: Cough, Wheezing *Physical Exam - Vital Signs Last Vital Signs Temp Pulse Resp BP Pulse Ox 97.5 F L 119 H 19 110/68 99 07/17/19 21:57 07/17/19 21:57 07/17/19 21:57 07/17/19 21:57 07/17/19 21:57 - Physical Exam 07/17/19 22:32 GENERAL: The patient is awake, alert, and fully oriented, in no acute distress. HEAD: Normal with no signs of trauma. EYES: sclera anicteric, conjunctiva clear. ENT: Ears normal tympanic membranes normal oropharynx clear uvula midline NECK: Normal range of motion LUNGS: Minimal right basilar expiratory wheezing HEART: S1 and S2 without murmur, rub or gallop. ABDOMEN: Soft, nontender, normoactive bowel sounds. No guarding, no rebound. No masses. EXTREMITIES: Normal range of motion, no edema. No clubbing or cyanosis. No cords, erythema, or tenderness. NEUROLOGICAL: Cranial nerves II through XII grossly intact. Normal speech, normal gait. PSYCH: Normal mood, normal affect. SKIN: Warm, Dry, normal turgor, no rashes or lesions noted. ED Treatment Course - Medications Given in the ED: ED Medications Discontinued Medications Generic Name Dose Route Start Last Admin Trade Name Freq PRN Reason Stop Dose Admin Dexamethasone 10 mg 07/17/19 22:11 07/17/19 22:13 Decadron Liquid - PO 07/17/19 22:12 10 mg ONCE ONE Administration Medical Decision Making - Medical Decision Making 07/17/19 22:32 Wheezing has cleared with 1 treatment and Decadron follow-up with pulmonology as scheduled nebulizer and solution was refilled at her request. Discharge - Discharge Information Problems reviewed: Yes Clinical Impression/Diagnosis: Asthma Condition: Stable Disposition: HOME - Admission No - Additional Discharge Information Prescriptions: Albuterol 0.083% Nebulizer Veronica [Ventolin 0.083% Nebulizer Soln -] 1 neb NEB Q4H PRN #20 vial PRN Reason: Wheezing Nebulizer and Compressor [Keo Choice Nebulizer] 1 each ASDIR #1 each - Follow up/Referral Referrals: Senait Gould MD [Primary Care Provider] - - Patient Discharge Instructions Additional Instructions: Your nebulizer and solution of albuterol was refilled. Return to the emergency room for worsening symptoms and without fail please follow-up with pulmonology in 2 to 3 days as scheduled you were given a dose of a long-acting steroid in the emergency room. You do not require home steroid medication at this time. - Post Discharge Activity
== END 2019-07-17 22:47 | disposition home or self-care (01) ==
LOC: JERFT 21:49
PROC: 3E0F7GC Introduction of Other Therapeutic Substance into Respiratory Tract, Via Natural or Artificial Opening (ICD-10-PCS; principal; 2019-07-17)
DX: J45.909 Unspecified asthma, uncomplicated (principal)
CPT/HCPCS: 99281-25

== ENCOUNTER 2019-09-23 08:43 | Emergency (ER) | payer OTHER ==
[2019-09-23 08:51] VITALS: BP 109/60; PULSE 90; TEMP 98.2; BMI 25.3
--- NOTE | 2019-09-23 10:12 | PDOC ---
History of Present Illness - General Chief Complaint: Cold Symptoms Stated Complaint: COUGH Time Seen by Provider: 09/23/19 09:38 History Source: Patient, Parent(s) Exam Limitations: No Limitations - History of Present Illness Initial Comments: 09/23/19 10:37 39 year old female with medical history of thyroid disease, acid reflux, DM and asthma and surgical history of partial thyroidectomy, presents with reports of chronic cough x 1 year, getting worse in past week with shortness of breath especially with exertion. Patient states using albuterol nebulizers 3 times per day and constantly coughing. Denies fever or chills Is this a multiple visit Asthma Patient?: No Timing/Duration: reports: week Severity: reports: mild Possible Cause: Yes: no prior episodes Modifying Factors: improves with: albuterol nebulizer Associated Symptoms: reports: cough. denies: headache, muscle aches, nasal drainage, shortness of breath Past History - Travel Traveled outside of the country in the last 30 days: No Close contact w/someone who was outside of country & ill: No - Past Medical History Allergies/Adverse Reactions: Allergies Allergy/AdvReac Type Severity Reaction Status Date / Time No Known Drug Allergies Allergy Verified 09/23/19 08:48 Home Medications: Ambulatory Orders Levothyroxine [Synthroid -] 25 mcg PO DAILY 08/20/15 Ranitidine Oral Solution [Zantac] 75 mg PO BID 05/18/18 Benzonatate [Tessalon Pearls -] 100 mg PO Q8H #20 capsule 04/26/19 Montelukast Na [Singulair -] 10 mg PO HS #7 tablet 04/26/19 predniSONE [Deltasone -] 20 mg PO BID 5 Days #10 tablet 04/26/19 Albuterol 0.083% Nebulizer Veronica [Ventolin 0.083% Nebulizer Soln -] 1 amp NEB Q6H 14 Days #30 amp 06/13/19 Albuterol 0.083% Nebulizer Veronica [Ventolin 0.083% Nebulizer Soln -] 1 neb NEB Q4H PRN #20 vial 07/17/19 Montelukast Na [Singulair -] 10 mg PO HS #30 tablet 07/17/19 Nebulizer and Compressor [[place] Choice Nebulizer] 1 each ASDIR #1 each 01/01/20 Albuterol Sulfate [Albuterol Sulfate Hfa] 18 gm IH QID #1 hfa.aer.ad 09/23/19 Methylprednisolone [Medrol Dose Shun] 4 mg PO ASDIR #21 tablet 09/23/19 Anemia: No Asthma: Yes Cancer: No Cardiac Disorders: Yes (heart murmur) CVA: No COPD: No CHF: No Dementia: No Diabetes: Yes (BOARDERLINE) GI Disorders: No Disorders: No HTN: No Hypercholesterolemia: No Liver Disease: No Seizures: No Thyroid Disease: Yes (HYPO) - Surgical History Abdominal Surgery: Yes - Reproductive History Spontaneous : 3 - Immunization History Immunization Up to Date: Yes - Psycho Social/Smoking Cessation Hx Smoking Status: No Smoking History: Never smoked Have you smoked in the past 12 months: No Number of Cigarettes Smoked Daily: 0 Information on smoking cessation initiated: No Hx Alcohol Use: No Drug/Substance Use Hx: No Substance Use Type: None Respiratory Specific PMHX - Complaint Specific PMHX Hx Airway Support: No Hx Asthma: No Hx Vaping: No Hx Allergic Rhinitis: No Hx Pneumonia: No Hx Pulmonary Embolus: No Review of Systems - Review of Systems Able to Perform ROS?: Yes Is the patient limited Turkmen proficient: No Constitutional: No: Chills, Fever, Night Sweats, Weakness HEENTM: No: Ear Pain, Nose Pain, Nose Congestion, Nose Bleeding, Hearing Loss, Throat Pain, Mouth Pain, Difficulty Swallowing, Mouth Swelling Respiratory: Yes: Cough, Shortness of Breath, SOB with Exertion. No: Wheezing Cardiac (ROS): No: Edema, Irregular Heart Rate, Lightheadedness, Palpitations ABD/GI: No: Blood Streaked Bowels, Constipated : No: Dysuria, Hematuria, Incontinence, Pain, Urgency Musculoskeletal: No: Back Pain, Joint Pain, Muscle Weakness, Neck Pain Integumentary: No: Change in Color, Dryness, Erythema Neurological: No: Headache, Numbness, Paresthesia Psychiatric: No: Frequent Crying, Stressors Hematologic/Lymphatic: No: Blood Clots, Bleeding Diathesis *Physical Exam - Vital Signs Last Vital Signs Temp Pulse Resp BP Pulse Ox 98.2 F 90 17 109/60 100 09/23/19 08:48 09/23/19 08:48 09/23/19 08:48 09/23/19 08:48 09/23/19 08:48 - Physical Exam General Appearance: Yes: Nourished, Appropriately Dressed HEENT: positive: Pharyngeal Erythema Neck: positive: Supple. negative: Lymphadenopathy (R), Lymphadenopathy (L) Respiratory/Chest: positive: Lungs Clear Cardiovascular: positive: Regular Rhythm, Regular Rate, S1, S2 Extremity: positive: Normal Capillary Refill Neurologic: positive: Fully Oriented, Alert, Normal Mood/Affect Medical Decision Making - Medical Decision Making 09/23/19 10:42 39 year old female with medical history of thyroid disease, acid reflux, DM and asthma and surgical history of partial thyroidectomy, presents with reports of chronic cough x 1 year, getting worse in past week with shortness of breath especially with exertion. Patient states using albuterol nebulizers 3 times per day and constantly coughing. asthma exacerbation -chest xray 09/23/19 11:01 chest xray negative rx:medrol pack, albuterol pump d/c home f/u with pmd Discharge - Discharge Information Problems reviewed: Yes Clinical Impression/Diagnosis: Asthma exacerbation Qualifiers: Asthma severity: mild Asthma persistence: intermittent Qualified Code(s): J45.21 - Mild intermittent asthma with (acute) exacerbation Condition: Good Disposition: HOME - Admission No - Additional Discharge Information Prescriptions: Albuterol Sulfate [Albuterol Sulfate Hfa] 18 gm IH QID #1 hfa.aer.ad Methylprednisolone [Medrol Dose Shun] 4 mg PO ASDIR #21 tablet - Follow up/Referral Referrals: Senait Guold MD [Primary Care Provider] - (Call for follow up appointment ) - Patient Discharge Instructions Patient Printed Discharge Instructions: How to Avoid a Cold or Flu Additional Instructions: Please use pump every 4 hours as needed for wheezing and chest tightness Please take medication as prescribed Please drink plenty fluids Call supervisor hot dip tinning and primary physician for follow appointment Return for worsening symptoms - Post Discharge Activity Work/Back to School Note: Back to Work
== END 2019-09-23 11:07 | disposition home or self-care (01) ==
LOC: JERFT 08:43
DX: J45.21 Mild intermittent asthma with (acute) exacerbation (principal); E11.9 Type 2 diabetes mellitus without complications; K21.9 Gastro-esophageal reflux disease without esophagitis; E89.0 Postprocedural hypothyroidism; R01.1 Cardiac murmur, unspecified
CPT/HCPCS: 71046-TC-FY; 99283-25

== ENCOUNTER → 2021-12-09 | Day surgery (SDC) | payer OTHER | END | disposition home or self-care (01) | LOC: JRADUS-SUR 09:11 | PROVIDERS: ATTEND Internal Medicine Endocrinology, Diabetes & Metabolism | PROC: 0G9K3ZX Drainage of Thyroid Gland, Percutaneous Approach, Diagnostic (ICD-10-PCS; principal; 2021-12-09) | DX: E04.1 Nontoxic single thyroid nodule (principal) | CPT/HCPCS: 10005; 76942; 88173; 88305-TC ==

== ENCOUNTER → 2021-12-30 | Day surgery (SDC) | payer OTHER | END | disposition home or self-care (01) | LOC: JRADIR 10:08 | PROVIDERS: ATTEND Internal Medicine Endocrinology, Diabetes & Metabolism | PROC: 0G9G3ZX Drainage of Left Thyroid Gland Lobe, Percutaneous Approach, Diagnostic (ICD-10-PCS; principal; 2021-12-30) | DX: E04.1 Nontoxic single thyroid nodule (principal) | CPT/HCPCS: 10005; 76942; 88173; 88305-TC ==